=== PATIENT | female | born 1975 | race Asian ===

== ENCOUNTER 2019-05-25 09:41 | Outpatient (CLI) | payer OTHER | END 2019-05-25 20:22 | disposition home or self-care (01) | LOC: MAMMO 09:41 | DX: Z12.31 Encounter for screening mammogram for malignant neoplasm of breast (principal) ==

== ENCOUNTER 2019-08-05 15:23 | Outpatient (CLI) | payer OTHER | END 2019-08-05 19:29 | disposition home or self-care (01) | LOC: RAD 15:23 | DX: M79.641 Pain in right hand (principal) ==

== ENCOUNTER 2022-11-20 08:32 | Outpatient (CLI) | payer OTHER | END 2022-11-20 18:56 | disposition home or self-care (01) | LOC: RAD 08:32 | PROVIDERS: ATTEND Nurse Practitioner Family | DX: M25.561 Pain in right knee (principal) ==